=== PATIENT | male | born 1935 | race Caucasian/White ===

== ENCOUNTER 2020-08-21 21:53 | Emergency (ER) | payer MEDICARE ==
[~2020-08-21] VITALS: Ht 172.7 cm; Wt 72.0 kg
[~2020-08-21 21:53] MED LIST: ATENOLOL50 MG PO; BABY ASPIRIN81 MG OR; FLUARIX QUADRIV1 IN1 IM; FLUARIX QUADRIV1 INJ IM; FLUZONE SPLT1 M1 IM; LISINOPRIL20 M1 OR; LOVASTATIN20 MG PO; LOVASTATIN40 M1 OR; PAROXETINE10 MG PO; XANAX0.25 MG PO; ZOSTAVAX IM
[2020-08-21] MEDS ORDERED: LISINOPRIL10 MG PO (22:15)
[2020-08-21] MEDS ORDERED: XANAX0.25 MG PO (22:16)
[2020-08-21 22:23] LABS: HEMATOCRIT 46.9 % (39.0-50.0); HEMOGLOBIN 15.4 g/dl (14.0-18.0); IMMATURE GRANULOCYTES 0.1 % (0.0-5.0); MEAN CELL VOLUME 89.2 fL CALC (80.0-100.0); MEAN CORPUSCULAR HGB 29.3 pG CALC (26.0-32.0); MEAN CORPUSCULAR HGB CONC 32.8 g/dL CAL (32.0-36.0); NEUT# 3.66 thou/uL (1.82-7.42); RED BLOOD COUNT 5.26 mill/uL (4.70-6.10); RED CELL DISTRI WIDTH 13.3 % (11.5-15.5)
[2020-08-21 22:41] LABS: ALBUMIN 4.8 g/dL (3.2-5.0); ALKALINE PHOSPHATASE 88 u/l (38-126); AMYLASE 90 u/l (30-110); BUN 21 mg/dL (8-23); BUN/CREATININE RATIO 16 (12-20 (CALC)); CARBON DIOXIDE 25 mmol/l (22-30); CHLORIDE 103 mmol/l (95-108); CREATININE 1.3 mg/dL (0.7-1.3); GFR 53 ML/MIN (>=60 (CALC)); GFR FOR AFR.AMER. > 60 ML/MIN (>=60 (CALC)); LIPASE 93 u/l (23-300); MAGNESIUM 2.2 mg/dL (1.6-2.3); SGOT/AST 33 u/l (19-48); SODIUM 138 mmol/l (137-146); TOTAL PROTEIN 8.1 g/dL (6.3-8.2)
[2020-08-21 22:50] LABS: ANION GAP 14 (6-22 (CALC)); BILIRUBIN, TOTAL 0.8 mg/dL (0.0-1.4); POTASSIUM 3.9 mmol/l (3.5-5.1)
[2020-08-21 22:53] LABS: MYOGLOBIN 137 ng/mL (0 - 121)
[2020-08-22] MEDS ORDERED: LISINOPRIL20 MG PO (00:30)
[2020-08-22 00:40] VITALS: BP 168/88
[2020-08-22 01:04] LABS: URINE BILIRUBIN - DIPSTICK NEGATIVE (NEGATIVE); URINE BLOOD DIPSTICK NEGATIVE (NEGATIVE); URINE COLOR YELLOW; URINE GLUCOSE - DIPSTICK NEGATIVE (NEGATIVE); URINE KETONE NEGATIVE (NEGATIVE); URINE LEUK ESTERASE NEGATIVE (NEGATIVE); URINE PROTEIN - DIPSTICK NEGATIVE (NEG-TRACE); URINE UROBILINOGEN - DIPSTICK 0.2 E.U./dL (0.2)
[2020-08-22 01:07] LABS: URINE NITRITE - DIPSTICK NEGATIVE (Negative)
== END 2020-08-22 00:40 | disposition home or self-care (01) ==
LOC: ED 21:53
PROVIDERS: Family Medicine
DX: I10 Essential (primary) hypertension (principal); F41.9 Anxiety disorder, unspecified
CPT/HCPCS: S0164

== ENCOUNTER 2021-02-22 14:51 | Emergency (ER) | payer MEDICARE ==
[~2021-02-22] VITALS: Ht 172.7 cm; Wt 81.0 kg
[~2021-02-22 14:51] MED LIST changes: +LISINOPRIL10 MG PO; +LISINOPRIL20 MG PO
[2021-02-22 15:42] LABS: HEMATOCRIT 52.3 % (39.0-50.0); IMMATURE GRANULOCYTES 0.1 % (0.0-5.0); MEAN CELL VOLUME 91.4 fL CALC (80.0-100.0); MEAN CORPUSCULAR HGB 30.4 pG CALC (26.0-32.0); MEAN CORPUSCULAR HGB CONC 33.3 g/dL CAL (32.0-36.0); NEUT# 13.11 thou/uL (1.82-7.42); RED BLOOD COUNT 5.72 mill/uL (4.70-6.10); RED CELL DISTRI WIDTH 12.8 % (11.5-15.5)
[2021-02-22 15:44] LABS: HEMOGLOBIN 17.4 g/dl (14.0-18.0)
[2021-02-22 16:01] LABS: ALBUMIN 4.8 g/dL (3.2-5.0); ALKALINE PHOSPHATASE 83 u/l (38-126); ANION GAP 17 (6-22 (CALC)); BUN 18 mg/dL (8-23); BUN/CREATININE RATIO 15 (12-20 (CALC)); CARBON DIOXIDE 23 mmol/l (22-30); CHLORIDE 100 mmol/l (95-108); CREATININE 1.2 mg/dL (0.7-1.3); GFR 58 ML/MIN (>=60 (CALC)); GFR FOR AFR.AMER. > 60 ML/MIN (>=60 (CALC)); LIPASE 95 u/l (23-300); POTASSIUM 4.2 mmol/l (3.5-5.1); SGOT/AST 37 u/l (19-48); SODIUM 136 mmol/l (137-146); TOTAL PROTEIN 8.5 g/dL (6.3-8.2)
[2021-02-22 17:09] VITALS: BP 176/89
[2021-02-22 18:04] LABS: ACT PARTIAL THROMBO TIME 59.9 SECONDS (20.0-32.5); PROTHROMBIN TIME 10.6 SECONDS (9.0-12.5)
== END 2021-02-22 17:58 | disposition short-term general hospital (02) ==
LOC: ED 14:51
PROVIDERS: Physician Assistant Surgical
DX: I21.4 Non-ST elevation (NSTEMI) myocardial infarction (principal); I10 Essential (primary) hypertension; F41.9 Anxiety disorder, unspecified
CPT/HCPCS: J1644

== ENCOUNTER 2021-09-21 22:38 | Emergency (ER) | payer MEDICARE ==
[~2021-09-21] VITALS: Ht 172.7 cm; Wt 70.0 kg
[2021-09-21] VITALS (10 sets, daily range): BP systolic 173–212; BP diastolic 84–100
[2021-09-21 23:28] LABS: HEMATOCRIT 45.8 % (39.0-50.0); HEMOGLOBIN 15.1 g/dl (14.0-18.0); MEAN CELL VOLUME 91.8 fL CALC (80.0-100.0); MEAN CORPUSCULAR HGB 30.3 pG CALC (26.0-32.0); NEUT# 4.17 thou/uL (1.82-7.42); RED BLOOD COUNT 4.99 mill/uL (4.70-6.10); RED CELL DISTRI WIDTH 12.8 % (11.5-15.5)
[2021-09-21 23:42] LABS: ALBUMIN 4.3 g/dL (3.2-5.0); ALKALINE PHOSPHATASE 84 u/l (38-126); ANION GAP 13 (6-22 (CALC)); BILIRUBIN, TOTAL 0.5 mg/dL (0.0-1.4); BUN 17 mg/dL (8-23); BUN/CREATININE RATIO 14 (12-20 (CALC)); CARBON DIOXIDE 22 mmol/l (22-30); CHLORIDE 107 mmol/l (95-108); CREATININE 1.2 mg/dL (0.7-1.3); GFR 58 ML/MIN (>=60 (CALC)); GFR FOR AFR.AMER. > 60 ML/MIN (>=60 (CALC)); POTASSIUM 4.2 mmol/l (3.5-5.1); SGOT/AST 29 u/l (19-48); SODIUM 138 mmol/l (137-146); TOTAL PROTEIN 7.6 g/dL (6.3-8.2)
[2021-09-21 23:54] LABS: MYOGLOBIN 43 ng/mL (0 - 121)
[2021-09-22] VITALS (17 sets, daily range): BP systolic 155–182; BP diastolic 74–85
[2021-09-22] MEDS ORDERED: NAPROXEN500 MG PO (03:26)
== END 2021-09-22 04:10 | disposition home or self-care (01) ==
LOC: ED 22:38
PROVIDERS: Emergency Medicine
DX: M48.14 Ankylosing hyperostosis [Forestier], thoracic region (principal); I10 Essential (primary) hypertension; F41.9 Anxiety disorder, unspecified
CPT/HCPCS: Q9967

== ENCOUNTER 2022-06-17 08:31 | Day surgery (SDC) | payer MEDICARE ==
[~2022-06-17] VITALS: Ht 172.7 cm; Wt 69.4 kg
[~2022-06-17 08:31] MED LIST changes: +LISINOPRIL20 M1 PO; +NAPROXEN500 MG PO; +TRAZODONE50 MG PO
[2022-06-17] MEDS ORDERED: PERCOCET 5/321 COMBO PO (11:05)
[2022-06-17 13:33] VITALS: BP 157/78
== END 2022-06-17 13:58 | disposition home or self-care (01) ==
LOC: ORM 08:31
PROVIDERS: ATTEND Surgery
PROC: 0WUF0JZ Supplement Abdominal Wall with Synthetic Substitute, Open Approach (ICD-10-PCS; principal; 2022-06-17)
PROC: 0YU50JZ Supplement Right Inguinal Region with Synthetic Substitute, Open Approach (ICD-10-PCS; 2022-06-17)
DX: K43.2 Incisional hernia without obstruction or gangrene (principal); K40.90 Unilateral inguinal hernia, without obstruction or gangrene, not specified as recurrent; I10 Essential (primary) hypertension; F41.9 Anxiety disorder, unspecified
CPT/HCPCS: C9290; J0131